=== PATIENT | male | born 1980 | race Caucasian/White ===

== ENCOUNTER 2025-06-16 22:24 | Emergency (ER) | payer OTHER, SELFPAY ==
[2025-06-16 22:26] VITALS: BP 219/121
[2025-06-16 22:53] LABS: Hematocrit 41.0 % (39.0-52.0); Hemoglobin 14.2 g/dL (13.0-18.0); Mean Corp Hgb Conc. 34.6 g/dL (33.0-37.0); Mean Corpuscular Volume 88.7 fL (80.0-94.0); Nucleated Red Blood Cells % 0 % (-); Platelet Count 262 10^3/uL (130-400); Red Cell Dist. Width 12.9 % (11.5-14.5)
[2025-06-16 23:17] LABS: ALT (SGPT) 44 U/L (0-50); AST (SGOT) 26 U/L (17-59); Albumin 5.1 g/dl (3.5-5.0); Alkaline Phosphatase 70 U/L (38-126); Blood Urea Nitrogen 18 mg/dl (9-20); Calcium 9.8 mg/dl (8.4-10.2); Carbon Dioxide 26 mmol/L (22-30); Chloride 107 mmol/L (98-107); Glucose 129 mg/dl (70-99); Potassium 4.7 mmol/L (3.5-5.1); Sodium 142 mmol/L (135-145); Total Protein 7.7 g/dl (6.3-8.2); eGFR > 60.00
[2025-06-16 23:33] LABS: Troponin I < 0.012 ng/ml
--- NOTE | 2025-06-16 23:56 | ED.GENMED ---
History of Present Illness
General
Chief Complaint: Anxiety
Time Seen by Provider: 06/16/25 23:40
History of Present Illness
History of Present Illness:
FOCUSED PAST MEDICAL HISTORY
- The patient has a history of anxiety and had hepatitis C in the past
REVIEW OF OLD RECORDS
- No old records available for review in [facility]
Note:
CHIEF COMPLAINT(S)
Anxiety attack with heart palpitations and shaking.
HISTORY OF PRESENT ILLNESS
The patient is a 44-year-old male who presents with symptoms of anxiety characterized by a racing heart, shaking, and a feeling of high blood pressure. The symptoms began while at a [employer] festival after consuming approximately two beers
and a caffeinated coffee. The patient reported similar episodes, with one occurring two days prior, triggered by a nightmare. The patient experiences frequent anxiety attacks, which at times occur without apparent cause, and he utilizes lorazepam
sparingly to manage acute episodes. Past attempts at using CPAP for obstructive sleep apnea resulted in increased heart rate at night, prompting its discontinuation. The patient has been advised by his physician regarding neurotransmitter support
supplements for brain function, though he hasnt started on SSRI or SNRI medications like sertraline but was prescribed a new medication (buspirone) recently. The patient acknowledges occasional alcohol use, primarily in social settings. Currently,
his vital signs and lab work are stable.
PAST MEDICAL AND SURGICAL HISTORY
The patient has a history of obstructive sleep apnea.
SOCIAL DETERMINANTS OF HEALTH
The patient consumes alcohol socially but denies daily use.
PHYSICAL EXAM
- General: Well appearing in no distress
- HEENT: Moist oral mucosa
- Cardiovascular: No murmurs, normal heart rate, regular rhythm, No chest wall tenderness, heart rate 72 while I was in the room
- Pulmonary: No respiratory distress, breath sounds are clear and equal
- Abdomen: Soft with no peritoneal signs, no tenderness
- Neurologic: Excellent strength all extremities, no coordination deficits
- Psychiatric: Appropriate mental status, normal insight and judgement, the patient does not currently appear anxious
- Extremities: Nontender, no edema, moves all extremities equally
- Skin: No rash, no lesions
PLAN
The patient was advised to avoid mixing alcohol with sedative medications such as lorazepam due to potential cumulative effects that can amplify sedation. The patient was encouraged to initiate the newly prescribed anti-anxiety medication as
recommended by his primary care provider, Dr. Spence. Steady follow-up with his primary care provider to evaluate medication efficacy and anxiety management was also recommended.
DIFFERENTIAL DIAGNOSIS
The Differential Diagnosis includes, in no particular order and is not limited to:
- Generalized anxiety disorder
- Panic disorder
- Alcohol-related anxiety
- Caffeine-induced anxiety
- Essential tremor
- Cardiac arrhythmia
- Hyperthyroidism
- Obstructive sleep apnea effect
- Benzodiazepine withdrawal
- Social phobia
SUMMARY OF ENCOUNTER
The patient visited the emergency department due to experiencing an anxiety attack, induced possibly by caffeine and alcohol intake. The patients vital signs normalized on arrival, and his lab work showed no abnormalities. He was advised to manage
his anxiety with a newly prescribed medication and cautioned against combining alcohol with lorazepam.
DISPOSITION
Discharge
MEDICATION RECONCILIATION
The patient is prescribed lorazepam for acute anxiety episodes and has been recently prescribed an unspecified new medication for daily anxiety management. He has also been using a GEENA supplement upon his doctors recommendation.
MEDICAL DECISION MAKING
-Complexity of Data Reviewed: Chronic conditions affecting care include obstructive sleep apnea and anxiety disorders. The Differential Diagnosis includes, in no particular order and is not limited to: Generalized anxiety disorder, Panic disorder,
Alcohol-related anxiety, Caffeine-induced anxiety, Essential tremor, Cardiac arrhythmia, Hyperthyroidism, Obstructive sleep apnea effect, Benzodiazepine withdrawal, Social phobia.
-Data:
Category 1:
Discussed blood work, which returned normal.
Category 3:
Discussed management strategies of anxiety with recommendation to follow up with primary care provider.
DIAGNOSIS
Anxiety Disorder (F41.9)
Obstructive Sleep Apnea Syndrome (G47.33)
EKG
- Sinus 103, normal axis, nonspecific ST abnormality
LABS
- CBC unremarkable, chemistries unremarkable, troponin less than 0.012
SUMMARY OF ENCOUNTER
The patient, a 44-year-old male, presented to the emergency department experiencing an anxiety attack, potentially exacerbated by the consumption of caffeine and alcohol. He reported a history of frequent anxiety attacks and uses lorazepam (generic
for Ativan) sparingly for acute episodes. He was advised to initiate buspirone, previously recommended by his primary care physician, for ongoing management. Basic lab work performed was unremarkable.
DISPOSITION
Discharge
PLAN
The patient was instructed to commence taking buspirone as recommended by his primary care physician for the management of anxiety. He was advised against mixing alcohol with lorazepam due to potential cumulative effects. A follow-up with his
primary care provider was recommended to evaluate the efficacy of the management plan.
PATIENT EDUCATION AND COUNSELING
The patient was educated on the risks of combining alcohol with lorazepam and the importance of adhering to the prescribed anti-anxiety regimen. He was also advised about initiating buspirone for anxiety management.
FOLLOW-UP INSTRUCTIONS
The patient was advised to follow up with his primary care physician, Dr. Santos, to monitor the efficacy of the treatment and manage anxiety.
MEDICATION RECONCILIATION
The patient is prescribed lorazepam for acute anxiety episodes and buspirone for daily anxiety management.
MEDICAL DECISION MAKING
-Complexity of Data Reviewed: Chronic conditions affecting care include obstructive sleep apnea and anxiety disorders. Differential diagnosis includes generalized anxiety disorder, panic disorder, alcohol-related anxiety, caffeine-induced anxiety,
essential tremor, cardiac arrhythmia, hyperthyroidism, obstructive sleep apnea effect, benzodiazepine withdrawal, and social phobia.
-Data:
Category 1: Basic lab work was reviewed and was unremarkable.
-Risk: Consideration of Admission/Observation: Escalation of care including admission/observation was considered given the complexity and risk of the patients presenting complaint, but ultimately, it was determined the patient is safe for outpatient
management with close follow-up. Work-up was reassuring and did not reveal any acute life/organ-threatening processes. The patients symptoms were well controlled upon reevaluation, and vital signs were stable. The patient was agreeable with
discharge and reliable for follow-up.
DIAGNOSIS
Anxiety Disorder (F41.9)
Phy Exam
Physical Exam
Physical Exam:
See HPI
Course
Orders/Labs/Results
Orders:
Orders
06/16/25 22:30
EKG [Electrocardiogram (*1)] Urgent
Reason for Study: Palpitations
EKG- Treatment ONCE
06/16/25 22:44
Complete Blood Count/With Diff Urgent
Comprehensive Metabolic Panel Urgent
TSH Reflex To Free T4 Urgent
Troponin I Urgent
Abnormal Lab Results
06/16/25
22:44
RBC 4.62 L 10^6/uL
(4.70-6.10)
Absolute Monos (auto) 0.8 H 10^3/uL
(0.1-0.6)
Glucose 129 H mg/dl
(70-99)
Albumin 5.1 H g/dl
(3.5-5.0)
06/16/25 22:44
06/16/25 22:44
Vital Signs
Initial and Last Documented VS:
Initial Vital Signs
Temp Pulse Resp BP Pulse Ox
36.9 C 115 16 219/121 99
06/16/25 22:26 06/16/25 22:26 06/16/25 22:26 06/16/25 22:26 06/16/25 22:26
Last Documented Vital Signs
Temp Pulse Resp BP Pulse Ox
36.9 C 115 16 219/121 99
06/16/25 22:26 06/16/25 22:26 06/16/25 22:26 06/16/25 22:26 06/16/25 22:26
*Pulse Oximetry
SaO2: 99
Oxygen Mode of Delivery: Room air
Patient hypoxic: no
*Critical Care Note
Total Time (30-74mins, 75-104mins- exclusive of procedures): Not Applicable
ED Attending Note
-
Portions of this chart may have been created with voice recognition software.� Occasional wrong word or��sound alike� substitutions may have occurred due to the inherent limitations of voice recognition software.
Discharge Plan
Interventions
Interventions:
*Risk Screen - Suicide Last Done: 06/16/25 22:26
*General Assessment Last Done: 06/16/25 22:26
*ED- Fall Risk Assessment Last Done: 06/16/25 22:26
*ED COVID-19 Vaccine History Last Done: 06/16/25 22:26
ED-Psychological Assessment Last Done: 06/16/25 23:38
Discharge Date and Time
Print Language: PASHTO
== END 2025-06-17 00:46 | disposition home or self-care (01) ==
LOC: EMR 22:24
PROVIDERS: Emergency Medicine; EMERGENCY PHYSICIAN Emergency Medicine; FAMILY PHYSICIAN Internal Medicine
DX: F41.0 Panic disorder [episodic paroxysmal anxiety] (principal); R25.1 Tremor, unspecified; R00.2 Palpitations; G47.33 Obstructive sleep apnea (adult) (pediatric); Z86.19 Personal history of other infectious and parasitic diseases
CPT/HCPCS: 99283; 80053; 84439; 84443; 84484; 85025; 93005